=== PATIENT | female | born 1975 | race Caucasian/White ===

== ENCOUNTER → 2020-12-16 01:37 | Outpatient (CLI) | payer OTHER, SELFPAY ==
[2020-12-16 18:54] LABS: SARS-CoV-2 RNA PCR Negative
== END ==
PROVIDERS: Visit Provider Surgery Plastic and Reconstructive Surgery
DX: Z01.812 Encounter for preprocedural laboratory examination (principal); Z20.822 Contact with and (suspected) exposure to COVID-19
CPT/HCPCS: C9803; U0003; U0005

== ENCOUNTER 2020-12-16 09:20 | Outpatient (CLI) | payer OTHER, SELFPAY ==
--- NOTE | 2020-12-16 | ECG_ITS ---
Measurements Intervals [place] Rate: 56 P: 40 [place]: 133 QRS: 62 QRSD: 113 T: 26 QT: 414 QTc: 402 Interpretive Statements SINUS BRADYCARDIA INCOMPLETE RIGHT BUNDLE BRANCH BLOCK BASELINE ARTIFACT- II, III, AVL, AVF BORDERLINE ECG Electronically Signed On 12-16-2020 11:59:22 [employer]CIAL [employer] by Robert Zuluaga D.O.
== END 2020-12-16 09:21 | disposition home or self-care (01) ==
PROVIDERS: Visit Provider Anesthesiology
DX: I47.1 Supraventricular tachycardia (principal); I45.10 Unspecified right bundle-branch block
CPT/HCPCS: 93005

== ENCOUNTER 2020-12-19 01:04 | Day surgery (SDC) | payer OTHER, SELFPAY ==
[2020-12-12 11:48] VITALS: BMI 24.6
--- NOTE | 2020-12-18 08:03 | WPDANESEPPF ---
Anes - Initial Pre Proc Eval Procedure: Operation Date: 12/19/20 10:30 Proposed Procedures p Abdominoplasty - Anand Dill MD s Liposuction Abdomen - Anand Dill MD s Open Umbilical Hernia Repair - Lillian Trujillo MD s Bilateral Inframammary Fold Revision - Anand Dill MD Date/Time: 12/18/20 08:03 Surgeon: Anand Dill MD Pre Op Diagnosis: Skin Laxity, umbilical hernia Patient Data Age: 45 Gender: F Height: 1.73 m Weight: 73.5 kg Allergies Allergy/AdvReac Type Severity Reaction Status Date / Time pneumococcal vaccine Allergy Rash Verified 12/19/20 09:30 Home Medications Medication Instructions Recorded Confirmed Type aspirin 81 mg tablet,delayed 81 mg PO DAILY 07/13/20 12/12/20 History release digoxin 250 mcg (0.25 mg) tablet 250 mcg PO DAILY 07/13/20 12/12/20 History metoprolol succinate 50 mg 50 mg PO DAILY 07/13/20 12/12/20 History tablet,extended release 24 hr ascorbic acid (vitamin C) 500 mg 500 mg PO DAILY 08/23/20 12/12/20 History capsule mecobalamin (vitamin B12) 1,000 1,000 mcg PO DAILY 08/23/20 12/12/20 History mcg chewable tablet docusate sodium 100 mg capsule 100 mg PO DAILY #14 cap 12/07/20 12/12/20 Rx ondansetron HCl 4 mg tablet 4 mg PO Q8H #24 tablet 12/07/20 12/12/20 Rx carisoprodol 350 mg tablet 350 mg PO TID PRN #21 tablet 12/08/20 12/12/20 Rx oxycodone-acetaminophen 5 mg-325 1 tablet PO Q6H PRN #15 tablet 12/08/20 12/12/20 Rx mg tablet Patient hx anesthesia problems: none Family hx anesthesia problems: none PMFSH Past Medical History Medical History (Updated 12/19/20 @ 09:34 by Ant Garcia DO) History of paroxysmal supraventricular tachycardia failed ablation age 17. Controlled with digoxin and metoprolol. 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 Questions were solicited and answers provided to the satisfaction of the patient/family/POA.
[2020-12-19] VITALS (10 sets, daily range): BP systolic 86–109; BP diastolic 46–63; PULSE 62–89; RESP 10–19; TEMP 35.8–36.9; O2SAT 99–100
[2020-12-19] MEDS: LACTATED RINGERS 1,000 ML 30 ML IV CONT ×2 (09:21→14:56)
[2020-12-19 09:28] LABS: Urine Cotinine NEGATIVE
[2020-12-19] MEDS: ACETAMINOPHEN 500 MG TABLET 1000 MG PO (09:39)
[2020-12-19] MEDS: KETOROLAC 15 MG/ML VIAL (*BKC) IV PUSH (09:39)
--- NOTE | 2020-12-19 09:43 | WPDHPUPDATE1 ---
History and Physical Update Update Date/Time: 12/19/20 09:43 History and Physical has been reviewed, including an updated exam of the patient. There are NO changes in the patient's condition. Risks, benefits, and alternatives have been discussed and questions answered. Patient agrees to proceed with procedure.
--- NOTE | 2020-12-19 10:03 | WPDHPUPDATE1 ---
History and Physical Update Update Date/Time: 12/19/20 10:03 History and Physical has been reviewed, including an updated exam of the patient. There are NO changes in the patient's condition. Risks, benefits, and alternatives have been discussed and questions answered. Patient agrees to proceed with procedure.
--- NOTE | 2020-12-19 10:25 | PM.PROC ---
Procedure Note - Detailed Date of procedure: 12/19/20 Pre-op diagnosis: Skin Laxity, umbilical hernia Post-op diagnosis: same Procedure performed: 1. Revision bilateral breast IMF 2. Suction lipectomy abdomen 3. Progressive tension abdominoplasty Description of procedure: She is here today for the above. Previously and again today the risks, benefits, alternatives were discussed in extensive detail. I wanted her to be very realistic about the risks involved as well as expectations. We discussed aftercare and what to monitor for. I was very upfront about the risks of wound breakdown leading to loss of skin, open wounds, and need for additional procedures with permanent abdominal deformity. We discussed DVT/PE risks and management. Made sure answered all of her questions to her satisfaction today and consent was obtained. She was marked in the preoperative holding area with their verification. The patient was taken to the operating room placed supine on the operating table. Anesthesia was provided by anesthesiology. A jackson catheter was started. She was prepped and draped in a standard sterile fashion. A surgical time-out was taken. 1% lidocaine and 0.25% Marcaine with epinephrine was used anesthetize along the breast planned IMF excision. Ten blade used to make these incisions based on her preoperative markings. The IMF skin was resected. I tacked into place. Placed her in a sitting position and verified appropriate approximation. This was closed with 2-0 PDS followed by 3-0 strata fix and running subcuticular 4-0 Monocryl followed by tissue glue. I placed the patient in a flexed position to verify the upper and lower markings would reach. I then placed her supine. A thorough abdominal examination was completed. Stab incisions were made and used tumescent solution. Suction lipectomy was completed based on principles of S.A.F.E. technique based on preoperative planning and intraoperative observations / rolling pinch. She was placed in bilateral lateral decubitus positions during the procedure to complete. A 10 blade was used to make the upper incision. I continued dissection down to the level of fascia. Elevated just what was necessary for repair of the diastasis and discontinuous undermining otherwise. I then again flexed the bed to verify the upper skin flap would reach the lower markings without tension. Once verified I placed her supine once again and a 10 blade used to make the lower incision. I elevated up to level the umbilicus and left the umbilicus intact on a well-vascularized stalk. The intervening tissue was removed. A 2 mm blunt cannula and Exparel which was mixed 20 cc in 100 cc for a total volume of 120 cc I injected deep to the fascia bilaterally as well as along the incision lines. At this point Dr. Trujillo entered the room. He completed the hernia repair. See his note for details. I plicated the diastasis recti using 0 PDO stratafix barbed suture. This was in 2 separate layers using 2 separate sutures as well. I repaired around the umbilicus leaving plenty of room for well-vascularized stalk of the umbilicus with 2-0 PDS. The patient was flexed and starting from superior to inferior began plication using 2-0 Vicryl to obliterate all space in a standard progressive tension fashion. At the umbilicus I marked out the location of the skin and inset this with 3-0 Monocryl and 4-0 nylon. I continued the remainder of the plication using 2-0 Vicryl until I reached my lower planned scar line. I trimmed any excess skin of the upper flap making sure this was a tension-free closure. I then approximated using a 3 point suture with 2-0 Vicryl followed by 3-0 stratafix ,running subcuticular 4-0 Monocryl, and tissue glue. Fluffs and an abdominal binder were placed. The patient was transferred to the bed in a flexed position. [place] and taken to the PACU without difficulty. All instrument and sponge counts were correct at
[2020-12-19] MEDS: ceFAZolin 2 GM/D5W 50 ML 2 GM/50 ML BAG IVPB (10:33)
--- NOTE | 2020-12-19 13:30 | PM.PROC ---
Procedure Note - Detailed Date of procedure: 12/19/20 Pre-op diagnosis: Skin Laxity, umbilical hernia incarcerated umbilical hernia Post-op diagnosis: same Procedure performed: repair of incarcerated umbilical hernia c mesh Description of procedure: The patient had previously been placed under general anesthesia. The patient had undergone abdominoplasty by Dr. Dill, please see his full op report for details. I was able to bluntly dissect around the umbilicus. I then carefully dissected the umbilicus off the underlying incarcerated hernia. Once the hernia sac was completely , I noted a moderate sizedl defect with incarcerated fat and omentum. I excised the hernia sac and was able to mobilize the incarcerated tissue and reduce it back into the abdominal cavity. This left an approximately 2.5 cm defect. I was able to clear the fascia both anteriorly and posteriorly. I then placed a 4.6 cm ventralex patch in the underlay position. Once in good position, I sutured the mesh in with interrupted O Ethibond sutures. I then closed this defect primarily with interrupted 0 Ethibond suture over the mesh. I then reapproximated the umbilicus to the fascia with a 3 0 Vicryl U-stitch. Dr. Dill then returned to the OR for completion for the abdominoplasty. Implants: 4.6 cm ventral patch Anesthesia: [facility] Surgeon: Lillian Trujillo MD Estimated blood loss (mL): 5 Drains: No Packing: No Pathology: none sent Complications: No immediate complications Condition: stable Disposition: PACU Findings: incarcerated umbilical hernia c peritoneal fat, omentum
--- NOTE | 2020-12-19 14:31 | SUR.OPER ---
EBL:40cc, URINE:250cc
[2020-12-19] MEDS: fentaNYL CITRATE INJ (*CRX) 100 MCG/2 ML VIAL 25 MCG IV PUSH ×6 (15:15→15:48)
--- NOTE | 2020-12-19 16:00 | PC.NURSE ---
This patient, Komal Velarde, was received from PACU on 12/19/20 at 1600. Patient/family oriented to unit policies and routines
[2020-12-19] MEDS: MORPHINE SULFATE (*CRX) 2 MG/ML INJ IV PUSH (17:07)
[2020-12-19] MEDS: LACTATED RINGERS 1,000 ML 125 ML IV CONT (17:08)
[2020-12-19] MEDS: DIGOXIN 250 MCG TABLET PO (18:13)
[2020-12-19] MEDS: carisoprodoL (*CRX) 350 MG TABLET PO (18:13)
[2020-12-19] MEDS: METOPROLOL SUCCINATE EXT REL 50 MG TABCR PO (18:13)
[2020-12-19] MEDS: oxyCODONE/ACETAMINOPHEN (*CRX) 5-325 MG TABLET PO (20:28)
[2020-12-19] MEDS: DOCUSATE SODIUM 100 MG CAPSULE PO (20:28)
[2020-12-20] MEDS: carisoprodoL (*CRX) 350 MG TABLET PO ×2 (01:00→06:08)
[2020-12-20] MEDS: oxyCODONE/ACETAMINOPHEN (*CRX) 5-325 MG TABLET PO ×2 (02:51→09:05)
[2020-12-20 03:00] VITALS: BP 92/68; PULSE 80; RESP 15; TEMP 36.9
--- NOTE | 2020-12-20 07:20 | WPDPN ---
Progress Note: A&P Assessment and Plan (1) Skin laxity: Code(s): L57.4 - Cutis laxa senilis Status: Acute Assessment and Plan: She is doing very well after: Bilateral breast revision Progressive tension abdominoplasty Suction lipectomy of abdomen Umbilical hernia repair (by Dr. Trujillo) will discharge home. Today we spent nearly 20 minutes discussing the care. What monitor for. Activity limitations. Making sure answered all of her questions to her satisfaction. I will see her back. Call with any questions or concerns in the meantime. (2) History of bilateral breast reduction surgery: Code(s): Z98.890 - Other specified postprocedural states Status: Acute (3) Umbilical hernia: Code(s): K42.9 - Umbilical hernia without obstruction or gangrene Status: Acute Time Spent With Patient Time with patient: 15 - 25 minutes Review of Systems Review of Systems: All systems reviewed & are unremarkable except as noted in HPI and below Exam Narrative: Exam Narrative: Bilateral breasts are healing well. No signs of infection. No hematoma. No seroma. Abdomen is healing well. No signs of infection. No hematoma. No seroma. No calf tenderness. Negative Homans. Objective Data Vital Signs Vital Signs: Vital Signs - 24 hr 12/19/20 09:32 12/19/20 14:56 12/19/20 15:00 Temperature 36.8 C 35.8 C L Pulse Rate 74 67 70 Respiratory Rate 16 10 L 19 Blood Pressure 102/52 L 86/46 L 91/62 L Pulse Oximetry 100 100 100 12/19/20 15:15 12/19/20 15:30 12/19/20 15:45 Temperature Pulse Rate 62 67 74 Respiratory Rate 12 13 14 Blood Pressure 97/52 L 93/59 L 108/60 Pulse Oximetry 100 100 100 12/19/20 16:00 12/19/20 18:13 12/19/20 20:00 Temperature 36.6 C 36.8 C Pulse Rate 83 80 89 Respiratory Rate 18 17 Blood Pressure 109/63 104/62 Pulse Oximetry 99 12/19/20 23:45 12/20/20 03:00 Temperature 36.9 C 36.9 C Pulse Rate 87 80 Respiratory Rate 15 15 Blood Pressure 88/48 L 92/68 L Pulse Oximetry Intake/Output Intake/Output: Intake & Output 0312/18/20 12/19/20 12/20/20 23:59 23:59 23:59 23:59 Intake Total 700 900 Output Total 300 1350 Balance 400 -450 Meds/Results Medications: Active Medications Generic Name Dose Route Start Last Admin Trade Name Venkat PRN Reason Stop Dose Admin Carisoprodol 350 mg 12/19/20 18:00 12/20/20 06:08 Carisoprodol (*Crx) 350 Mg Tablet PO 350 mg Q6HR ARMANDO Administration Digoxin 250 mcg 12/19/20 18:00 12/19/20 18:13 Digoxin 250 Mcg Tablet PO 250 mcg QPM ARMANDO Administration Docusate Sodium 100 mg 12/19/20 21:00 12/19/20 20:28 Docusate Sodium 100 Mg Capsule PO 100 mg Q12HR ARMANDO Administration Enoxaparin Sodium 40 mg 12/20/20 09:00 Enoxaparin 40 Mg/0.4 Ml Syringe SUB-Q DAILY ARMANDO Lactated Ringer's 1,000 mls @ 125 mls/hr 12/19/20 14:30 12/19/20 17:08 Lr - Lactated Ringers Iv IV CONT 125 mls/hr .Q8H ARMANDO Administration Metoprolol Succinate 50 mg 12/19/20 18:00 12/19/20 18:13 Metoprolol Succinate Ext Rel 50 Mg Tabcr PO 50 mg QPM ARMANDO Administration Morphine Sulfate 2 mg 12/19/20 14:28 12/19/20 17:07 Morphine Sulfate (*Crx) 2 Mg/Ml Inj IV PUSH 2 mg Q2H PRN Administration Pain Ondansetron HCl 4 mg 12/19/20 14:28 Ondansetron Inj 4 Mg/2 Ml Vial IV PUSH Q6H PRN Nausea Oxycodone/Acetaminophen 1 - 2 tablet 12/19/20 14:28 12/20/20 02:51 Oxycodone/Acetaminophen (*Crx) 5-325 Mg Tablet PO 2 tablet Q6H PRN Administration Pain Labs Labs: Laboratory Results - last 24 hr 12/19/20 09:00 Cotinine Negative Subjective Date/time seen: 12/20/20 07:20 She states that she is doing very well. No complaints. No fevers or chills. No nausea vomiting. No shortness of breath. No chest pain. No calf tenderness.
--- NOTE | 2020-12-20 07:24 | P.DS_ITS ---
DS: Admitting Diagnosis Admitting Diagnosis Admitting Diagnosis: Skin laxity History breast reduction Umbilical hernia DS: Discharge Diagnosis Discharge Diagnosis (1) Skin laxity: Code(s): L57.4 - Cutis laxa senilis Status: Acute Assessment and Plan: She is doing very well after: * Bilateral breast revision * Progressive tension abdominoplasty * Suction lipectomy of abdomen * Umbilical hernia repair (by Dr. Trujillo) Will discharge home. (2) History of bilateral breast reduction surgery: Code(s): Z98.890 - Other specified postprocedural states Status: Acute (3) Umbilical hernia: Code(s): K42.9 - Umbilical hernia without obstruction or gangrene Status: Acute DS: Summary Hospital Course Hospital Course: She underwent: * Bilateral breast revision * Progressive tension abdominoplasty * Suction lipectomy of abdomen * Umbilical hernia repair (by Dr. Trujillo) She has done very well. Ambulating. Pain controlled. Tolerating diet. Will plan for discharge home. Time Spent with Patient Time attestation: Total time spent providing and/or coordinating discharge services: Exam Narrative: Exam Narrative: Bilateral breasts are healing well. No signs of infection. No hematoma. No seroma. Abdomen is healing well. No signs of infection. No hematoma. No seroma. No calf tenderness. Negative Homans. DS: Data Data Completed and Pending Labs on day of discharge: Labs from last 24 hours 12/19/20 09:00 Cotinine Negative Discharge Plan Discharge Patient Disposition: Home, Self-Care Discharge Instructions: POST OPERATIVE DISCHARGE INSTRUCTION ANAND DILL M.D. [facility] [address] [place] [address] * No driving for 24 hours after anesthesia and while you are taking pain medication. * Take all prescribed medication as directed * Diet as tolerated. * No lifting or activity that raises blood pressure for 48 hours. * Regular walking / ambulation. * No showering until directed to. Once you shower do not take pain medication before showering as the combination of medication and heat may cause you to feel dizzy or pass out. * No pools or tubs for 2 weeks. * Call with any questions or concerns. * Slowly stand up straight as tolerated. * No lifting more than 20 pounds or straining for 6 weeks. * Dressing Care: Continue gentle compression 23 hours per day. If you have any questions or concerns, please call the office . If it is after hours you will be directed to the literacy consultant exchange. Shortness of breath, chest pain, or other medical emergency dial 911 / proceed to the Emergency Room. Stand Alone Forms: General Discharge Instructions Follow-up/Referrals: Anand Dill MD [Physician] - 1 Week Discharge Medications: Continued mecobalamin (vitamin B12) 1,000 mcg tablet,chewable 1,000 mcg PO DAILY RF: 0 ascorbic acid (vitamin C) 500 mg capsule 500 mg PO DAILY RF: 0 ondansetron HCl [Zofran] 4 mg tablet 4 mg PO Q8H Qty: 24 RF: 0 docusate sodium [Colace] 100 mg capsule 100 mg PO DAILY Qty: 14 RF: 0 carisoprodol [Soma] 350 mg tablet 350 mg PO TID PRN (Reason:
--- NOTE | 2020-12-20 07:24 | PM.DS ---
DS: Admitting Diagnosis Admitting Diagnosis Admitting Diagnosis: Skin laxity History breast reduction Umbilical hernia DS: Discharge Diagnosis Discharge Diagnosis (1) Skin laxity: Code(s): L57.4 - Cutis laxa senilis Status: Acute Assessment and Plan: She is doing very well after: Bilateral breast revision Progressive tension abdominoplasty Suction lipectomy of abdomen Umbilical hernia repair (by Dr. Trujillo) Will discharge home. (2) History of bilateral breast reduction surgery: Code(s): Z98.890 - Other specified postprocedural states Status: Acute (3) Umbilical hernia: Code(s): K42.9 - Umbilical hernia without obstruction or gangrene Status: Acute DS: Summary Hospital Course Hospital Course: She underwent: Bilateral breast revision Progressive tension abdominoplasty Suction lipectomy of abdomen Umbilical hernia repair (by Dr. Trujillo) She has done very well. Ambulating. Pain controlled. Tolerating diet. Will plan for discharge home. Time Spent with Patient Time attestation: Total time spent providing and/or coordinating discharge services: Exam Narrative: Exam Narrative: Bilateral breasts are healing well. No signs of infection. No hematoma. No seroma. Abdomen is healing well. No signs of infection. No hematoma. No seroma. No calf tenderness. Negative Homans. DS: Data Data Completed and Pending Labs on day of discharge: Labs from last 24 hours 12/19/20 09:00 Cotinine Negative Discharge Plan Discharge Patient Disposition: Home, Self-Care Discharge Instructions: POST OPERATIVE DISCHARGE INSTRUCTION ANAND DILL M.D. [facility] [address] [place] [address] No driving for 24 hours after anesthesia and while you are taking pain medication. Take all prescribed medication as directed Diet as tolerated. No lifting or activity that raises blood pressure for 48 hours. Regular walking / ambulation. No showering until directed to. Once you shower do not take pain medication before showering as the combination of medication and heat may cause you to feel dizzy or pass out. No pools or tubs for 2 weeks. Call with any questions or concerns. Slowly stand up straight as tolerated. No lifting more than 20 pounds or straining for 6 weeks. Dressing Care: Continue gentle compression 23 hours per day. If you have any questions or concerns, please call the office . If it is after hours you will be directed to the application coordinator exchange. Shortness of breath, chest pain, or other medical emergency dial 911 / proceed to the Emergency Room. Stand Alone Forms: General Discharge Instructions Follow-up/Referrals: Anand Dill MD [Physician] - 1 Week Discharge Medications: Continued mecobalamin (vitamin B12) 1,000 mcg tablet,chewable 1,000 mcg PO DAILY RF: 0 ascorbic acid (vitamin C) 500 mg capsule 500 mg PO DAILY RF: 0 ondansetron HCl [Zofran] 4 mg tablet 4 mg PO Q8H Qty: 24 RF: 0 docusate sodium [Colace] 100 mg capsule 100 mg PO DAILY Qty: 14 RF: 0 carisoprodol [Soma] 350 mg tablet 350 mg PO TID PRN (Reason: muscle pain) Qty: 21 RF: 0 oxycodone-acetaminophen [Percocet] 5-325 mg tablet 1 tablet PO Q6H PRN (Reason: pain) Qty: 15 RF: 0 metoprolol succinate [Toprol XL] 50 mg tablet extended release 24 hr 50 mg PO DAILY RF: 0 digoxin 250 mcg (0.25 mg) tablet 250 mcg PO DAILY RF: 0 aspirin [Adult Low Dose Aspirin] 81 mg tablet,delayed release (DR/EC) 81 mg PO DAILY RF: 0 Other Ambulatory Orders: [place] 12 lead EKG (Routine) Timeframe: 3 Weeks Location: Determined by Patient Ordered By: Deondre Becker
--- NOTE | 2020-12-20 07:30 | PC.NURSE ---
PT introductions made and plan of care discussed per post op surgery, pain management, daily care activities and pending discharge to home. PT verbalized understanding.
--- NOTE | 2020-12-20 08:14 | WPDANESPN ---
Anes - Prog Note Post-Op Date/Time: 12/20/20 08:14 Cardiovascular status: normal Respiratory status: normal Airway patency: baseline Mental status: baseline Post-Op hydration status: normal Vital Signs: Last Vital Signs Temp 36.9 C 12/20/20 03:00 Pulse 80 12/20/20 03:00 Resp 15 12/20/20 03:00 BP 92/68 L 12/20/20 03:00 Pulse Ox 99 12/19/20 16:00 Pain Score (VAS): 3 I/O: Intake & Output 12/19/20 12/20/20 12/20/20 23:59 07:59 15:59 Intake Total 400 900 Output Total 300 1350 Balance 100 -450 12/19/20 09:00 Cotinine Negative Post-procedural complaints: none Patient Feedback: Patient satisfied with anesthetic care.
[2020-12-20 08:59] VITALS: BP 84/48; PULSE 78; RESP 18; TEMP 36.8; O2SAT 96
[2020-12-20] MEDS: ENOXAPARIN 40 MG/0.4 ML SYRINGE SUB-Q (09:06)
[2020-12-20] MEDS: DOCUSATE SODIUM 100 MG CAPSULE PO (09:06)
--- NOTE | 2020-12-20 09:10 | PC.NURSE ---
PT received discharge instructions per protocol and verbalized understanding of such care,
--- NOTE | 2020-12-20 09:40 | PC.NURSE ---
PT discharged to home via wheelchair accompanied by spouse to waiting car. Follow up appts confirmed
== END 2020-12-20 09:40 | disposition home or self-care (01) ==
LOC: ANHSURGERY 10:30 → ANHOB2 16:06
PROVIDERS: Surgery; Visit Provider Surgery Plastic and Reconstructive Surgery
PROC: (CPT 15877; principal; 2020-12-19 10:30)
PROC: (CPT 15877; 2020-12-19 10:30)
PROC: (CPT 49587; 2020-12-19 10:30)
PROC: (CPT 15877; 2020-12-19 10:30)
DX: K42.0 Umbilical hernia with obstruction, without gangrene (principal); Z41.1 Encounter for cosmetic surgery; L57.4 Cutis laxa senilis; I47.1 Supraventricular tachycardia; G54.0 Brachial plexus disorders
CPT/HCPCS: 49587; 15877; 15830; 15847; 19380; 80307; 99199; A9270; C1781; C9290; J0171; J0690; J1100; J1170; J1200; J1650; J1885; J2250; J2270; J2370; J2405; J2704; J2710; J3010; J7120